=== PATIENT | female | born 1980 | race Caucasian/White ===

== ENCOUNTER 2019-11-23 15:29 | Outpatient (CLI) | payer BC, SELFPAY ==
[2019-11-23 15:42] LABS: Basophils Absolute Auto 0.06 K/mm3 (0.00-0.10); Basophils Percent Auto 0.6 % (0.0-1.0); Eosinophils Absolute Auto 0.13 K/mm3 (0.02-0.50); Eosinophils Percent Auto 1.4 % (1.0-6.0); Hematocrit 41.1 % (35.0-49.0); Hemoglobin 13.8 g/dL (12.0-15.0); Immature Granulocyte Absolute 0.02 K/mm3 (0.00-0.00); Immature Granulocyte Percent A 0.2 % (0.0-0.0); Lymphocytes Absolute Auto 2.99 K/mm3 (1.10-4.50); Lymphocytes Percent Auto 32.2 % (18.0-42.0); Mean Corpuscular HGB Conc 33.6 g/dL (32.0-36.0); Mean Corpuscular Hemoglobin 31.2 pg (27.0-31.0); Mean Platelet Volume 9.9 fl (9.2-11.8); Monocytes Absolute Auto 0.39 K/mm3 (0.10-0.90); Monocytes Percent Auto 4.2 % (2.0-11.0); Neutrophils Absolute Auto 5.7 K/mm3 (1.7-7.2); Neutrophils Percent Auto 61.4 % (50.0-70.0); Platelet Count Result 323 K/mm3 (150-420); Red Blood Count 4.42 M/mm3 (4.20-5.40); Red Cell Distribution Width 11.9 % (11.6-14.4); White Blood Count 9.3 K/mm3 (4.8-10.8)
[2019-11-23 15:44] LABS: Appearance Urine Clear (Clear); Bilirubin Urine Negative (Negative); Color Urine Yellow (Yellow); Glucose Urine UA Negative (Negative); Ketones Urine Negative (Negative); Leukocyte Esterase Ur Negative LEU/UL (Negative); Nitrate Urine Negative (Negative); Protein Urine Negative (Negative); Urobilinogen Urine 0.2 mg/dL (0.2-1.0)
[2019-11-23 15:49] LABS: Pregnancy On Board Control Positive; Urine Pregnancy Test Negative
[2019-11-23 15:54] LABS: Add Urine Microscopic? YES; Blood Urine Trace-Intact (Negative); RBC Urine 0-2 /hpf (0-2); Squamous Epithelial Cell Urine Rare /hpf (Few); WBC Urine None seen /hpf (0-3)
[2019-11-23 15:55] LABS: Amorphous Sediment Urine Few; Bacteria Urine Trace /hpf
[2019-11-23 16:11] LABS: Alanine Aminotransferase 23 U/L (14-59); Albumin Level 3.9 g/dL (3.4-5.0); Alkaline Phosphatase 53 U/L (46-116); Amylase 40 U/L (25-115); Anion Gap 11.7 mmol/L (7-16); Aspartate Amino Transferase 16 U/L (15-37); Bilirubin,Total 0.3 mg/dL (0.00-1.00); Blood Urea Nitrogen 10 mg/dL (7-18); Carbon Dioxide 29 mmol/L (21-32); Chloride 102 mmol/L (98-108); Estimated Glomerular Filt Rate > 60; Glucose 87 mg/dL (70-99); Osmolality Calculated 286 mOsm/kg (285-295); Potassium 3.7 mmol/L (3.5-5.1); Sodium 139 mmol/L (136-145); Total Protein 8.1 g/dL (6.4-8.2)
== END 2019-11-23 15:30 | disposition home or self-care (01) ==
LOC: CHSLAB 15:32
PROVIDERS: PCP Internal Medicine; Visit Provider Family Medicine
DX: R10.13 Epigastric pain (principal)
CPT/HCPCS: 36415; 80053; 81001; 81025; 82150; 85025

== ENCOUNTER 2019-11-25 07:40 | Outpatient (CLI) | payer BC, SELFPAY ==
--- NOTE | ~2019-11-25 | US_ITS ---
EXAMINATION: US abdomen complete DATE: 11/25/2019 08:09 INDICATION: Abdominal pain. TECHNIQUE: Multiple grayscale and Doppler ultrasound images of the abdomen were obtained. COMPARISON: None FINDINGS: The visualized portions of the head, body, and tail of the pancreas are normal. The liver i s normal without focal lesion. No liver surface nodularity. There is normal flow in main portal vein. The gallbladder is normal in size. No gallstones or gallbladder wall thickening. There was no sonogr aphic Harper sign. The common duct is normal and measures 3 mm. Abdominal aorta is normal in caliber. Inferior vena cava is normal. The kidneys are normal in size. The spleen is normal in size. IMPRESSION: 1. Normal complete abdomen ultrasound. Reviewed, dictated and finalized at location A.
== END 2019-11-25 07:41 | disposition home or self-care (01) ==
LOC: CHSIMG 07:42
PROVIDERS: PCP Family Medicine; Visit Provider Family Medicine
DX: R10.9 Unspecified abdominal pain (principal)
CPT/HCPCS: 76700

== ENCOUNTER 2020-07-06 11:29 | Outpatient (CLI) | payer BC, SELFPAY ==
--- NOTE | ~2020-07-06 | XR_ITS ---
EXAMINATION: XR chest 2V DATE: 07/06/2020 11:59 INDICATION: Hypertension. TECHNIQUE: Frontal and lateral views of the chest were obtained. COMPARISON: None. FINDINGS: The chest demonstrates clear lungs without pneumonia, pleural effusion, or pneumothorax. Th e heart size is normal. IMPRESSION: 1. No acute cardiopulmonary disease. Reviewed, dictated and finalized at location A. [employer]
== END 2020-07-06 11:30 | disposition home or self-care (01) ==
LOC: CHSIMG 11:31
PROVIDERS: PCP Internal Medicine; Visit Provider Internal Medicine
DX: Z00.00 Encounter for general adult medical examination without abnormal findings (principal); I10 Essential (primary) hypertension
CPT/HCPCS: 71046

== ENCOUNTER 2021-12-05 07:17 | Outpatient (CLI) | payer BC, SELFPAY ==
--- NOTE | ~2021-12-05 | MM_ITS ---
EXAMINATION: MM screening [facility] BI w [place] HISTORY: Screening TECHNIQUE: Craniocaudal and mediolateral oblique 3-D tomosynthesis images were obtained and synthetic 2-D images were generated. CAD analysis was submitted and interpreted. COMPARISON: Comparison to multiple prior studies sequentially, with oldest reviewed study dated 04/05. BREAST PARENCHYMAL COMPOSITION: There are scattered areas of fibroglandular density. FINDINGS: There is no evidence of suspicious mass, calcification, or architectural distortion to sugg est malignancy in either breast. There has been no suspicious interval change. IMPRESSION: 1. No mammographic evidence of malignancy. 2. Recommend routine screening mammography in one year. BI-RADS Category 1: Negative Reviewed, dictated and finalized at location A.
== END 2021-12-05 07:18 | disposition home or self-care (01) ==
LOC: CHSIMG 07:20
PROVIDERS: PCP Internal Medicine; Visit Provider Obstetrics & Gynecology
DX: Z12.31 Encounter for screening mammogram for malignant neoplasm of breast (principal)
CPT/HCPCS: 77063; 77067

== ENCOUNTER 2022-12-07 07:24 | Outpatient (CLI) | payer BC, SELFPAY ==
--- NOTE | ~2022-12-07 | MM_ITS ---
EXAMINATION: MM screening [facility] BI w [place] HISTORY: Screening mammogram TECHNIQUE: Craniocaudal and mediolateral oblique 3-D tomosynthesis images were obtained and synthetic 2-D images were generated. CAD analysis was submitted and interpreted. COMPARISON: 12/05/2021, 04/15/2019 bilateral screening mammogram examinations BREAST PARENCHYMAL COMPOSITION: There are scattered areas of fibroglandular density. FINDINGS: There is no evidence of suspicious mass, calcification, or architectural distortion to sugg est malignancy in either breast. There has been no suspicious interval change. IMPRESSION: 1. No mammographic evidence of malignancy. 2. Recommend routine screening mammography in one year. BI-RADS Category 1: Negative Reviewed, dictated and finalized at location A.
== END 2022-12-07 07:25 | disposition home or self-care (01) ==
LOC: CHSIMG 07:27
PROVIDERS: PCP Internal Medicine; Visit Provider Obstetrics & Gynecology
DX: Z12.31 Encounter for screening mammogram for malignant neoplasm of breast (principal)
CPT/HCPCS: 77063; 77067

== ENCOUNTER 2023-05-20 11:08 | Outpatient (CLI) | payer BC, SELFPAY ==
--- NOTE | ~2023-05-20 | XR_ITS ---
Right Knee Technique: AP, lateral, and sunrise views were obtained. Clinical History: Burning sensation Findings: No fracture or dislocation is seen. Osseous alignment is anatomic. Joint spaces are preserv ed without degenerative or erosive change. Soft tissues are unremarkable. No joint effusion is seen. Impression: Unremarkable right knee radiographs. Reviewed, dictated and finalized at [facility]. [employer] Impression: Unremarkable right knee radiographs.
--- NOTE | ~2023-05-20 | XR_ITS ---
Left Knee Technique: AP, lateral, and sunrise views were obtained. Clinical History: Burning sensation Findings: No fracture or dislocation is seen. Osseous alignment is anatomic. Joint spaces are preserv ed without degenerative or erosive change. Soft tissues are unremarkable. No joint effusion is seen. Impression: Unremarkable left knee radiographs. Reviewed, dictated and finalized at [facility]. [employer] Impression: Unremarkable left knee radiographs.
== END 2023-05-20 11:09 | disposition home or self-care (01) ==
LOC: CHSIMG 11:10
PROVIDERS: PCP Internal Medicine; Visit Provider Internal Medicine
DX: M25.562 Pain in left knee (principal); M25.561 Pain in right knee
CPT/HCPCS: 73562

== ENCOUNTER 2023-05-21 07:55 | Outpatient (CLI) | payer BC, SELFPAY ==
[2023-05-21 08:12] LABS: Basophils Absolute Auto 0.03 K/mm3 (0.00-0.10); Basophils Percent Auto 0.4 % (0.0-1.0); Eosinophils Absolute Auto 0.14 K/mm3 (0.02-0.50); Hematocrit 43.1 % (35.0-49.0); Hemoglobin 14.1 g/dL (12.0-15.0); Immature Granulocyte Absolute 0.01 K/mm3 (0.00-0.00); Immature Granulocyte Percent A 0.1 % (0.0-0.0); Lymphocytes Absolute Auto 2.68 K/mm3 (1.10-4.50); Lymphocytes Percent Auto 37.7 % (18.0-42.0); Mean Corpuscular HGB Conc 32.7 g/dL (32.0-36.0); Mean Corpuscular Hemoglobin 30.5 pg (27.0-31.0); Mean Corpuscular Volume 93.1 fL (78.0-102.0); Mean Platelet Volume 9.6 fl (9.2-11.8); Monocytes Absolute Auto 0.46 K/mm3 (0.10-0.90); Monocytes Percent Auto 6.5 % (2.0-11.0); Neutrophils Absolute Auto 3.8 K/mm3 (1.7-7.2); Neutrophils Percent Auto 53.3 % (50.0-70.0); Platelet Count Result 295 K/mm3 (150-420); Red Blood Count 4.63 M/mm3 (4.20-5.40); Red Cell Distribution Width 12.2 % (11.6-14.4); White Blood Count 7.1 K/mm3 (4.8-10.8)
[2023-05-21 09:12] LABS: Alanine Aminotransferase 110 U/L (14-59); Albumin Level 4.1 g/dL (3.4-5.0); Alkaline Phosphatase 72 U/L (46-116); Anion Gap 10 mmol/L (8-16); Aspartate Amino Transferase 40 U/L (15-37); Bilirubin,Total 0.3 mg/dL (0.00-1.00); Blood Urea Nitrogen 12 mg/dL (7-18); Calcium 8.5 mg/dL (8.5-10.1); Carbon Dioxide 26 mmol/L (21-32); Chloride 100 mmol/L (98-108); Cholesterol 218 mg/dL (0-200); Estimated Glomerular Filt Rate > 60; Glucose 100 mg/dL (70-99); HDL Direct 48 mg/dL (40-60); LDL Cholesterol Calculated 117 mg/dL (<130); Osmolality Calculated 281 mOsm/kg (285-295); Potassium 4.3 mmol/L (3.5-5.1); Sodium 136 mmol/L (136-145); Thyroid Stimulating Hormone 5.09 uIU/mL (0.36-3.74); Total Protein 7.7 g/dL (6.4-8.2); Triglycerides 263 mg/dL (0-150)
[2023-05-21 09:39] LABS: CRP < 0.5 mg/dL (0.0-0.9)
[2023-05-23 11:24] LABS: Hepatitis A Antibody IgM Nonreactive; Hepatitis B Core Antibody Nonreactive (Nonreactive); Hepatitis B Surface Antigen Nonreactive (Nonreactive); Hepatitis C Virus Antibody Nonreactive
== END 2023-05-21 07:56 | disposition home or self-care (01) ==
LOC: CHSLAB 07:57
PROVIDERS: PCP Internal Medicine; Visit Provider Internal Medicine
DX: Z00.00 Encounter for general adult medical examination without abnormal findings (principal); M25.562 Pain in left knee; M25.561 Pain in right knee; R94.5 Abnormal results of liver function studies
CPT/HCPCS: 36415; 80053; 80061; 80074; 84443; 85025; 86140

== ENCOUNTER 2023-05-29 07:21 | Outpatient (CLI) | payer BC, SELFPAY ==
--- NOTE | ~2023-05-29 | US_ITS ---
Limited Abdominal Sonogram: Real-time sonographic imaging of the right upper quadrant was performed. Clinical History: Abnormal LFTs Findings: The liver appears heterogeneous, with no evidence of mass lesion or bile duct dilatation. Main portal vein demonstrates normal direction of flow. The gallbladder is well distended, and appear s normal with no evidence of gallstone or wall thickening. The common bile duct measures 3 mm. The v isualized pancreas, aorta, and IVC are unremarkable. Impression: Suspected diffuse fatty infiltration of the liver versus other chronic liver disease. Reviewed, dictated and finalized at location M. [employer] Impression: Suspected diffuse fatty infiltration of the liver versus other chronic liver di sease.
== END 2023-05-29 07:22 | disposition home or self-care (01) ==
LOC: CHSIMG 07:23
PROVIDERS: PCP Internal Medicine; Visit Provider Internal Medicine
DX: R94.5 Abnormal results of liver function studies (principal)
CPT/HCPCS: 76705

== ENCOUNTER 2023-06-05 15:53 | Outpatient (CLI) | payer BC, SELFPAY ==
[2023-06-05 16:51] LABS: Uric Acid 4.2 mg/dL (2.6-6.0)
[2023-06-05 16:55] LABS: CRP < 0.5 mg/dL (0.0-0.9)
[2023-06-08 21:24] LABS: Anti Cyclic Citrullinated Pept <16 Units (<20)
== END 2023-06-05 15:54 | disposition home or self-care (01) ==
LOC: CHSLAB 15:55
PROVIDERS: PCP Internal Medicine; Visit Provider Internal Medicine
DX: M25.562 Pain in left knee (principal); M25.561 Pain in right knee
CPT/HCPCS: 36415; 84550; 86038; 86140; 86200

== ENCOUNTER 2023-08-26 01:12 | Day surgery (SDC) | payer BC, SELFPAY ==
[2023-08-14 10:41] VITALS: BMI 32.1
[2023-08-26 06:24] VITALS: BP 131/78; PULSE 84; RESP 16; TEMP 36.1; O2SAT 100
[2023-08-26] MEDS: LACTATED RINGERS 1,000 ML 150 ML IV CONT (06:37)
--- NOTE | 2023-08-26 07:27 | WPDANESEPPF ---
Anes - Initial Pre Proc Eval Procedure: Operation Date: 08/26/23 07:30 Proposed Procedures p Screening Colonoscopy - Abelino Silva MD Date/Time: 08/26/23 07:27 Surgeon: Abelino Silva MD Pre Op Diagnosis: family hx colon ca Patient Data Age: 42 Gender: F Height: 1.63 m Weight: 84.8 kg Last Vital Signs Temp 97.0 F L 08/26/23 06:24 Pulse 84 08/26/23 06:24 Resp 16 08/26/23 06:24 BP 131/78 08/26/23 06:24 Pulse Ox 100 08/26/23 06:24 O2 Del Method Room Air 08/26/23 06:24 Allergies Allergy/AdvReac Type Severity Reaction Status Date / Time No Known Allergies Allergy Unknown Verified 08/26/23 06:22 Home Medications Medication Instructions Recorded Confirmed Type verapamil 120 mg tablet,extended 120 mg PO DAILY 08/14/23 08/26/23 History release Patient hx anesthesia problems: none Family hx anesthesia problems: none Results Review: All pre-operative results and documents have been reviewed as part of the pre-operative evaluation. [facility] Past Medical History Medical History (Updated 08/26/23 @ 07:28 by Abelino Silva MD) Family history of colon cancer in mother Social History Social History Smoking packs per day: 0.5 Smoking cigarettes per day: 10.0 Years smoked: 6 Smoking pack-years: 3.00 Smoking status: Former smoker Tobacco type: cigarettes Alcohol intake: current Alcohol use details: 2 per month Living arrangements: with family Spiritual care concerns: No Anes - Eval Final PreProcedure Day of Procedure 08/26/23 07:27 Patient weight: normal Heart: regular rate and rhythm Lungs: clear to auscultation Airway: Mallampati scale class II Neurological: alert and oriented Last oral intake: >/= 8 hours ASA classification: III Emergent: no Anesthetic plan: proceed Anesthesia type and monitoring: general GIVS and standard monitoring Results Review: All pre-operative results and documents have been reviewed as part of the pre-operative evaluation. Informed Consent: The patient's anesthetic plan and its attendant risks and benefits were discussed with the patient/family/POA. Questions were solicited and answers provided to the satisfaction of the patient/family/POA.
--- NOTE | 2023-08-26 07:27 | PM.HPGS ---
History of Present Illness History of Present Illness Consent: Risks, benefits, and alternatives have been discussed and questions answered. Patient agrees to proceed with procedure. Chief complaint: family hx colon ca Narrative: Sonia Chapman is a 42 year old female here for first colonoscopy, mother had colon cancer Review of Systems Review of Systems: All systems reviewed & are unremarkable except as noted in HPI and below PMFSH Past Medical History Medical History (Updated 08/26/23 @ 07:28 by Abelino Silva MD) Family history of colon cancer in mother Social History Social History Smoking packs per day: 0.5 Smoking cigarettes per day: 10.0 Years smoked: 6 Smoking pack-years: 3.00 Smoking status: Former smoker Tobacco type: cigarettes Alcohol intake: current Alcohol use details: 2 per month Living arrangements: with family Spiritual care concerns: No Meds Home Medications and Allergies Home Medications Medication Instructions Recorded Confirmed Type verapamil 120 mg tablet,extended 120 mg PO DAILY 08/14/23 08/26/23 History release Allergies Allergy/AdvReac Type Severity Reaction Status Date / Time No Known Allergies Allergy Unknown Verified 08/26/23 06:22 Vital Signs Vital Signs - 24 hr 08/26/23 06:24 Temperature 97.0 F L Pulse Rate 84 Respiratory Rate 16 Blood Pressure 131/78 Pulse Oximetry 100 Oxygen Delivery Room Air Exam Const: General: comfortable and no acute distress HENMT: Face/Nose/Sinus: Normal nares present Eyes: General: appearance normal, both eyes and all related structures Neck: Neck: no JVD Resp: Auscultation: clear to auscultation bilaterally Cardio: Rate: regular rate Rhythm: regular rhythm GI: Inspection: non-distended GI Palp: Yes Soft to palpation Skin: General skin exam: normal color Neuro: General: gait normal Speech: normal speech Extrem: General: normal to inspection Psych: Mental Status: mental status grossly normal Assessment and Plan Assessment and plan (1) Family history of colon cancer in mother: Code(s): Z80.0 - Family history of malignant neoplasm of digestive organs Status: Acute Assessment and Plan: colonoscopy
[2023-08-26 07:49] VITALS: BP 85/51; PULSE 66; RESP 22; O2SAT 96
[2023-08-26 07:59] VITALS: BP 87/55; PULSE 59; RESP 17; O2SAT 100
[2023-08-26 08:09] VITALS: BP 115/73; PULSE 62; RESP 17; O2SAT 100
== END 2023-08-26 08:17 | disposition home or self-care (01) ==
PROVIDERS: PCP Internal Medicine; Visit Provider Internal Medicine Gastroenterology
PROC: 0DJD8ZZ Inspection of Lower Intestinal Tract, Via Natural or Artificial Opening Endoscopic (ICD-10-PCS; CPT 45378; principal; 2023-08-26 07:30)
DX: Z12.11 Encounter for screening for malignant neoplasm of colon (principal); K64.8 Other hemorrhoids; Z87.891 Personal history of nicotine dependence; Z80.0 Family history of malignant neoplasm of digestive organs
CPT/HCPCS: 45378; J2704; J7120

== ENCOUNTER 2023-09-17 15:00 | Outpatient (RCR) | payer BC, SELFPAY ==
[2023-07-02 14:33] VITALS: BMI 32.1
[2023-07-02 15:31] VITALS: BMI 32.1
[2023-09-17 14:49] VITALS: BMI 31.3
[2023-09-17 14:57] VITALS: BMI 31.3
== END 2023-09-30 23:59 | disposition home or self-care (01) ==
LOC: ANHDMC 15:00
PROVIDERS: PCP Internal Medicine; Visit Provider Internal Medicine
DX: E78.2 Mixed hyperlipidemia (principal); Z71.3 Dietary counseling and surveillance
CPT/HCPCS: 97802; 97803

== ENCOUNTER 2023-12-24 07:24 | Outpatient (CLI) | payer BC, SELFPAY ==
--- NOTE | ~2023-12-24 | MM_ITS ---
EXAMINATION: MM screening [facility] BI w [place] HISTORY: Screening TECHNIQUE: Craniocaudal and mediolateral oblique 3-D tomosynthesis images were obtained and synthetic 2-D images were generated. CAD analysis was submitted and interpreted. COMPARISON: Comparison to multiple prior studies sequentially, with oldest reviewed study dated 04/05. BREAST PARENCHYMAL COMPOSITION: Not dense: There are scattered areas of fibroglandular density. FINDINGS: There is a developing focal asymmetry in the upper outer quadrant of the left breast [place] man iorly. The right breast is stable without evidence for malignancy. IMPRESSION: 1. Developing right breast asymmetry. 2. Additional mammographic views and possible breast ultrasound are recommended. BI-RADS Category 0: Incomplete: Needs additional imaging evaluation. Reviewed, dictated and finalized at location B. IMPRESSION: 1. Developing right breast asymmetry. 2. Additional mammographic views and possible breast ultrasound are recommended . BI-RADS Category 0: Incomplete: Needs additional imaging evaluation.
== END 2023-12-24 07:25 | disposition home or self-care (01) ==
LOC: CHSIMG 07:24
PROVIDERS: PCP Internal Medicine; Visit Provider Obstetrics & Gynecology
DX: Z12.31 Encounter for screening mammogram for malignant neoplasm of breast (principal); R92.8 Other abnormal and inconclusive findings on diagnostic imaging of breast
CPT/HCPCS: 77063; 77067

== ENCOUNTER 2023-12-27 09:33 | Outpatient (CLI) | payer BC, SELFPAY ==
--- NOTE | ~2023-12-27 | MMUS_ITS ---
EXAMINATION: MM diagnostic mac LT w [place], US breast LT limited HISTORY: Follow-up left breast asymmetry TECHNIQUE: Additional 3-D tomosynthesis images of the left breast were performed and synthetic 2-D im ages were generated. CAD analysis was submitted and interpreted. High resolution Limited left breast ultrasound was performed. COMPARISON: Comparison to multiple prior studies sequentially, with oldest reviewed study dated 04/05. BREAST PARENCHYMAL COMPOSITION: Not dense: There are scattered areas of fibroglandular density. FINDINGS: MAMMOGRAPHIC FINDINGS: Left breast asymmetry is less apparent with spot compression and mediolateral views. There are no bharath picious masses, calcifications or architectural distortion. ULTRASOUND: Limited left breast ultrasound: Normal heterogeneous echotexture without focal solid or cystic mass. IMPRESSION: 1. No evidence for malignancy in the left breast. 2. Routine yearly screening mammogram and regular clinical breast examination are recommended. BI-RADS Category 1: Negative Reviewed, dictated and finalized at location B. IMPRESSION: 1. No evidence for malignancy in the left breast. 2. Routine yearly screening mammogram and regular clinical breast examination a re recommended. BI-RADS Category 1: Negative
== END 2023-12-27 09:34 | disposition home or self-care (01) ==
LOC: CHSIMG 09:35
PROVIDERS: PCP Internal Medicine; Visit Provider Obstetrics & Gynecology
DX: R92.8 Other abnormal and inconclusive findings on diagnostic imaging of breast (principal)
CPT/HCPCS: 76642; 77061; 77065; G0279

== ENCOUNTER 2024-03-19 15:00 | Outpatient (RCR) | payer BC, SELFPAY ==
[2023-12-24 15:45] VITALS: BMI 31.4
[2023-12-24 15:46] VITALS: BMI 31.4
[2024-03-19 14:53] VITALS: BMI 30.7
== END 2024-03-23 10:45 | disposition home or self-care (01) ==
LOC: ANHDMC 15:00
PROVIDERS: PCP Internal Medicine; Visit Provider Internal Medicine
DX: E78.2 Mixed hyperlipidemia (principal); Z71.3 Dietary counseling and surveillance
CPT/HCPCS: 97802; 97803

== ENCOUNTER 2024-08-18 14:30 | Outpatient (RCR) | payer BC, SELFPAY ==
[2024-05-21 14:29] VITALS: BMI 30.7
[2024-08-18 14:21] VITALS: BMI 30.9
[2024-08-18 14:26] VITALS: BMI 30.9
== END 2024-08-19 23:59 | disposition home or self-care (01) ==
LOC: ANHDMC 14:30
PROVIDERS: PCP Internal Medicine; Visit Provider Internal Medicine
DX: E78.2 Mixed hyperlipidemia (principal); Z71.3 Dietary counseling and surveillance
CPT/HCPCS: 97802; 97803

== ENCOUNTER 2024-10-01 09:37 | Outpatient (CLI) | payer BC, SELFPAY ==
--- NOTE | ~2024-10-01 | US_ITS ---
Limited Abdominal Sonogram: Real-time sonographic imaging of the right upper quadrant was performed. Clinical History: Abnormal LFTs Findings: The liver appears normal with no evidence of mass lesion or bile duct dilatation. Main por ly vein demonstrates normal direction of flow. The gallbladder is well distended, and appears normal with no evidence of gallstone or wall thickening. The common bile duct measures 3 mm. The visualize d pancreas, aorta, and IVC are unremarkable. Impression: No significant abnormality seen. Reviewed, dictated and finalized at location . Impression: No significant abnormality seen.
== END 2024-10-01 09:38 | disposition home or self-care (01) ==
DX: K76.0 Fatty (change of) liver, not elsewhere classified (principal)
CPT/HCPCS: 76705

== ENCOUNTER 2024-10-06 07:48 | Outpatient (CLI) | payer BC, SELFPAY ==
--- NOTE | ~2024-10-06 | NM_ITS ---
EXAMINATION: NM hepatobiliary w pharm DATE: 10/06/2024 10:02 CDT INDICATION: Right upper quadrant pain COMPARISON: Ultrasound dated 10/01/2024 TECHNIQUE: 4.9 mCi Tc-99m mebrofenin (Choletec) was administered intravenously. Scintigraphic images of the abdomen were obtained for one hour. At the 1 hour time point, 1.7 mcg sincalide (Kinevac) was administered by slow intravenous infusion, and imaging was continued for 30 minutes. Gallbladder eje ction fraction was calculated by the technologist.] FINDINGS: There is normal clearance of radiotracer from the blood pool. There is homogeneous tracer u ptake by the liver. Activity progresses to the gallbladder and bowel. Gallbladder ejection fraction is 67% (normal 10-90%, but most patient with gallbladder dysfunction have GBEF < 35%).] IMPRESSION: 1. Normal hepatobiliary scan. Reviewed, dictated and finalized at location A.
--- OUTSIDE RECORDS SUMMARY | 2024-10-06 07:52 | XMS_ITS | Referral Summary ---
Author Organization [facility] Address [address] [place] [address] Care Team Providers Care Records Custodian Name Role Phone Chalo Hernandez MD Primary Care Provider [phone] Encounters Date Type Department Care Team Description 09/14/2024 Results Follow-Up [facility] [address] [place] [address] Medical Office [address] [place] [address] Lexie Samuels NP Liver Elastography w/o Imaging W/I&R -[facility], Hepatic function panel, CBC with auto differential, Additional followed-up results: 3 09/14/2024 4:20 PM CDT Lab [facility] [address] [place] [address] Metabolic dysfunction-associate d steatotic liver disease (MASLD) 09/14/2024 11:30 AM CDT Procedure visit [facility] [address] [place] [address] Medical Office [address] [place] [address] Metabolic dysfunction-associate d steatotic liver disease (MASLD) 09/14/2024 3:40 PM CDT Office Visit [facility] [address] [place] [address] Medical Office [address] [place] [address] Lexie Samuels NP Metabolic dysfunction-associate d steatotic liver disease (MASLD) (Primary Dx); Right upper quadrant pain 08/25/2024 Results Follow-Up [facility] [address] [facility] Medical Office Building [address] [place] [address] Lexie Samuels NP Hepatic function panel from Last 3 Months Allergies No known active allergies Medications verapamil SR (CALAN SR) 120 mg CR tablet 08/28/2023 Active Active Problems Problem Noted Date Diagnosed Date Right upper quadrant pain 09/14/2024 Assessment & Plan (09/14/2024 5:01 PM CDT): I have ordered NM HIDA scan to rule out biliary dyskinesia. I have offered GI referral. Patient would like to see what results show. Metabolic dysfunction-associ ated steatotic liver disease (MASLD) 09/14/2024 Assessment & Plan (09/14/2024 5:01 PM CDT): Mrs. Chapman presents for follow up for MASLD. She has history of elevated liver tests. Most recent lab work 08/21/2024 which shows AST 53, ALT 76. Fibroscan 09/09/2023 suggest of normal-moderate steatosis and low risk fibrosis. I will update lab work today and Fibroscan. Encouraged healthy lifestyle, weight loss, diet and exercise. We have discussed the natural history of Metabolic dysfunction-associated steatosis liver disease (MASLD) fomerly known as NAFLD. The the risks of progression to cirrhosis, association with hepatocellular carcinoma and potential future need for liver transplantation. We have discussed that in patients with metabolic associated liver disease the main mortality risks are primarily due to cardiovascular diseases, non-hepatic malignancies or cancers and only thirdly, from complications of liver disease. We recommend weight loss through diet and exercise. We recommend weight loss of 10% of current body weight over a period of a year. Lifestyle modification consisting of diet, exercise, and weight loss is necessary to treat patients with MASLD. The data shows that overall weight loss is the moraatya to improvement in the histopathological features of MASH. A combination of a low calorie diet (daily reduction by 500-1,000 kcal) and moderate-intensity exercise provides the best chances of achieving and maintaining weight loss over time. Weight loss of at least 3%-5% of body weight appears necessary to improve steatosis, but a greater weight loss (7%-10%) is needed to improve the majority of the histopathological features of MASH, including fibrosis. Follow up in 1 year. Elevated liver function tests 09/09/2023 Assessment & Plan (09/09/2023 10:35 AM CDT): Mrs. Chapman presents for evaluation of elevated liver tests and imaging findings if hepatic steatosis. Most recent lab work 05/21/2023 reveals Alk Phos 72, AST 40, ALT 110, T bili 0.3, Plt 295K. Right upper quadrant ultrasound for abdnomal liver function tests showed suspected diffuse fatty infiltration. Patient drinks 1-2 times per month, 1-2 mixed drinks maximum per instance. Workup shows negative for acute viral hepatitis. Patient has successfully lost 10 lbs through diet and exercise, since June 2023. I have suspicion this is metabolic associated steatotic liver dysfunction (MASLD) with patient's metabolic conditions of hypertension, hyperlipidemia, Obesity BMI 31. I will obtain lab work today to rule out other etiologies of elevated liver tests including autoimmune, genetic, iron overload and celiac. I will obtain Fibroscan toay to evaluate degree of hepatic steatosis and if fibrosis. I have given patient a weight loss goal of 10% of her body weight (~18 lbs) over the course of 1 year. Patient is motivated. I have recommended avoid supplements, herbals, can take up to 2,000 mg per day of Tylenol as needed. We have discussed the natural history of Metabolic dysfunction-associated steatosis liver disease (MASLD) fomerly known as NAFLD. The the risks of progression to cirrhosis, association with hepatocellular carcinoma and potential future need for liver transplantation. We have discussed that in patients with metabolic associated liver disease the main mortality risks are primarily due to cardiovascular diseases, non-hepatic malignancies or cancers and only thirdly, from complications of liver disease. We recommend weight loss through diet and exercise. We recommend weight loss of 10% of current body weight over a period of a year. Lifestyle modification consisting of diet, exercise, and weight loss is necessary to treat patients with MASLD. The data shows that overall weight loss is the morataya to improvement in the histopathological features of MASH. A combination of a low calorie diet (daily reduction by 500-1,000 kcal) and moderate-intensity exercise provides the best chances of achieving and maintaining weight loss over time. Weight loss of at least 3%-5% of body weight appears necessary to improve steatosis, but a greater weight loss (7%-10%) is needed to improve the majority of the histopathological features of MASH, including fibrosis. Follow up in 1 month. Immunizations Immunization Administration Dates Next Due DTP 12/29/1985, 6,05/06/1981,04/05,01/04/1981 Influenza, Quadrivalent, Spl it, Preservative Free, Intramuscular 02/20/2018,03/06/2016 MMR 01/09/1991,04/05/1986 Moderna SARS-CoV-2 Monovalen t Vaccination (12+ YRS) 08/05/2020,07/08/2020 OPV 08/04/1985, 6,05/06/1981,04/05,01/04/1981 Td, adsorbed 11/09/1994 Tdap 10/11/2018 Social History Tobacco Use Types Packs/Day Years Used Date Smoking Tobacco: Former Cigarettes Q uit: 2014 Smokeless Tobacco: Never Tobacco Cessation:Counseling Given: Not Answered Alcohol Use Standard Drinks/Week Comments Yes 0 (1 standard drink = 0.6 oz pur e alcohol) socially AUDIT-C Answer Date Recorded Q1: How often do you have a drink containing alc ohol? Monthly or less 09/14/2024 Q2: How many drinks containi ng alcohol do you have on a typical day when you are drinking? 1 or 2 09/14/2024 Q3: How often do you have si x or more drinks on one occasion? Never 09/14/2024 Comments Unknown Sex and Gender Information Value Date Recorded Sex Assigned at Not on file Legal Sex Female 4:09 PM [employer] Gender Identity Not on file Sexual Orientation Not on file Last Filed Vital Signs Vital Sign Reading Time Taken Comments Blood Pressure 130/77 09/14/2024 3:38 PM CDT Pulse 66 09/14/2024 3:38 PM CDT Temperature - - Respiratory Rate - - Oxygen Saturation 100% 09/14/2024 3:38 PM CDT Inhaled Oxygen Concentration - - Weight 86 kg (189 lb 9.6 oz) 09/14/2024 3:38 PM CDT Height 165.1 cm (5' 5) 09/14/2024 3:38 PM CDT Body Mass Index 31.55 09/14/2024 3:38 PM CDT Plan of Treatment Not on file Procedures Procedure Name Priority Date/Time Associated Diagnosis Comments DIFFERENTIAL AUTO Routine 09/14/2024 4:2 9 PM CDT Metabolic dysfunction-associa carly steatotic liver disease (MASLD) TSH Routine 09/14/2024 4:29 PM CDT Metabolic dysfunction-associa carly steatotic liver disease (MASLD) HEMOGLOBIN A1C Routine 09/14/2024 4:29 PM CDT Metabolic dysfunction-associa carly steatotic liver disease (MASLD) CBC WITH AUTO DIFFERENTIAL Routine 09/14/2024 4:29 PM CDT Metabolic dysfunction-associa carly steatotic liver disease (MASLD) HEPATIC FUNCTION PANEL Routine 09/14/2024 4:29 PM CDT Metabolic dysfunction-associa carly steatotic liver disease (MASLD) LIVER ELASTOGRAPHY W/O IMAGING W/I&R Routine 09/14/2024 4:11 PM CDT Metabolic dysfunction-associa carly steatotic liver disease (MASLD) HEPATIC FUNCTION PANEL Routine 08/20/2024 9:58 AM CDT Metabolic dysfunction-associa carly steatotic liver disease (MASLD) HEPATITIS C ANTIBODY Routine 09/09/2023 11:29 AM CDT Elevated liver function tests from Last 3 Months or Most Recently Relevant to Health Maintenance Results * Differential, auto (09/14/2024 4:29 PM CDT) Neutrophil abs 3.73 1.50 - 6.50 K/cumm Imm gran abs 0.02 0.00 - 0.10 K/cumm [facility] Lymphocyte abs 2.34 0.80 - 3.30 K/cumm [facility] Monocyte abs 0.45 0.20 - 0.80 K/cumm [facility] Eosinophil abs 0.14 0.00 - 0.50 K/cumm [facility] Basophil abs 0.04 0.00 - 0.10 K/cumm [facility] Neutrophil pct 55.5 % [facility] Comment: Interpretive Data Percent cell count reference ranges are not reported, since discordance with absolute values may lead to misinterpretation of CBC data. Current Interpretive Data was last revised on 2017. Imm gran pct 0.3 % [facility] Comment: Interpretive Data Percent cell count reference ranges are not reported, since discordance with absolute values may lead to misinterpretation of CBC data. Current Interpretive Data was last revised on 2017. Lymphocyte pct 34.8 % [facility] Comment: Interpretive Data Percent cell count reference ranges are not reported, since discordance with absolute values may lead to misinterpretation of CBC data. Current Interpretive Data was last revised on 2017. Monocyte pct 6.7 % [facility] Comment: Interpretive Data Percent cell count reference ranges are not reported, since discordance with absolute values may lead to misinterpretation of CBC data. Current Interpretive Data was last revised on 2017. Eosinophil pct 2.1 % [facility] Comment: Interpretive Data Percent cell count reference ranges are not reported, since discordance with absolute values may lead to misinterpretation of CBC data. Current Interpretive Data was last revised on 2017. Basophil pct 0.6 % [facility] Comment: Interpretive Data Percent cell count reference ranges are not reported, since discordance with absolute values may lead to misinterpretation of CBC data. Current Interpretive Data was last revised on 2017. Blood 09/14/2024 4:29 PM CDT 09/14/2024 5:03 PM CDT us Lexie Samuels NP LAB BLOOD ORDERABLES Final Result [facility] [address] [facility]. [place] [address] * CBC with auto differential (09/14/2024 4:29 PM CDT) [facility] WBC 6.72 3.80 - 9.90 K/cumm Hgb 12.6 11.9 - 15.5 g/dL [facility] Hct 37.9 35.6 - 45.5 % [facility] Plt 259 150 - 400 K/cumm [facility] MPV 10.3 9.1 - 12.3 fL [facility] RBC 4.00 3.90 - 5.20 M/cumm [facility] MCV 94.8 81.3 - 96.4 fL [facility] MCH 31.5 27.1 - 33.3 pg [facility] MCHC 33.2 32.3 - 35.7 g/dL [facility] RDW CV 12.5 11.1 - 14.9 % [facility] RDW SD 43.1 35.7 - 48.1 fL [facility] NRBC abs 0.00 0.00 - 0.01 K/cumm [facility] Blood 09/14/2024 4:29 PM CDT 09/14/2024 5:03 PM CDT Lexie Samuels NP LAB BLOOD ORDERABLES Final Result Performing Organization Address [facility] Co de Phone Number [facility] [phone] [facility] [place], [place] [phone] * TSH (09/14/2024 4:29 PM CDT) [facility] Thyroid Stimulating Hormone 3.48 0.30 - 4.20 mcIUnit/mL Blood 09/14/2024 4:29 PM CDT 09/14/2024 5:03 PM CDT Lexie Samuels NP LAB BLOOD ORDERABLES Final Result Performing Organization Address [facility] Co de Phone Number [facility] [address] [facility] [email or web address] [address] * Hemoglobin A1c (09/14/2024 4:29 PM CDT) Hgb A1C 5.2 4.0 - 5.6 % Estimated Average Glucose 103 mg/dL [facility] Comment: The ADA recommends reporting an estimated Average Glucose (eAG) with all Hemoglobin A1c results using the equation derived from a study of 507 normal and diabetic adults. Minority populations were underrepresented and children were not included. (Diabetes Care 31:8930-9111, 2008). The eAG is not equivalent to a fasting glucose. Blood 09/14/2024 4:29 PM CDT 09/14/2024 5:03 PM CDT Lexie Samuels NP LAB BLOOD ORDERABLES Final Result Performing Organization Address [facility] Co de Phone Number [facility] [id number] [facility] [place], [place] [phone] * Hepatic function panel (09/14/2024 4:29 PM CDT) Pathologist [facility] Bilirubin, total 0.2 0.1 - 1.2 mg/dL Bilirubin, direct <0.2 0.1 - 0.3 mg/dL [facility] Protein, pl 7.4 6.5 - 8.5 g/dL [facility] Albumin 4.3 3.5 - 5.0 g/dL [facility] Alk phos 60 40 - 130 Units/L [facility] ALT 42 7 - 45 Units/L [facility] AST 31 10 - 45 Units/L [facility] Comment:Hemolyzed; result ma y be falsely elevated. Blood 09/14/2024 4:29 PM CDT 09/14/2024 5:03 PM CDT Lexie Samuels NP LAB BLOOD ORDERABLES Final Result Performing Organization Address [facility] Co de Phone Number [facility] [phone] [address] [facility] [place], [place] [phone] * Liver Elastography w/o Imaging W/I&R -[facility] (09/14/2024 4:11 PM CDT) Anatomical Region Laterality Modality Other Lexie Samuels NP GI PROCEDURE ORDERABLES Fi nal Result * (ABNORMAL) Hepatic function panel (08/20/2024 9:58 AM CDT) [facility] Protein, Total 7.2 6.4 - 8.4 g/dL [facility] Albumin 4.2 3.6 - 5.1 g/dL [facility] Globulin 3.0 2.2 - 4.0 g/dL (calc) [facility] Alb/glob ratio 1.4 0.9 - 2.3 (calc) [facility] Bilirubin, total 0.3 0.2 - 1.2 mg/dL [facility] Comment: Verified by repeat analysis. Bilirubin, direct 0.0 < OR = 0.2 mg/dL [facility] Bilirubin, indirect 0.3 0.2 - 1.2 mg/dL (calc) [facility] Alk phos 58 31 - 125 U/L [facility] AST 53(H) 10 - 30 U/L [facility] ALT (SGPT) 76(H) 6 - 29 U/L [facility] Blood 08/20/2024 9:58 AM CDT 08/20/2024 9:59 AM CDT Lexie Samuels NP LAB BLOOD ORDERABLES Final Result [facility] [address] [place] [address] * Hepatitis C antibody Blood (09/09/2023 11:29 AM CDT) [facility] Hep C Ab Nonreactive Nonreactive Comment: Interpretive Data Nonreactive: Antibodies to HCV not detected. Does NOT exclude the possibility of recent exposure to HCV. Equivocal: Equivocal for HCV antibodies. Supplemental molecular testing will be automatically performed to determine infection status in accordance with current CDC screening recommendations. Reactive: Positive for HCV antibodies. This may represent current or past HCV infection. Supplemental molecular testing will be automatically performed to determine current infection status in accordance with current CDC screening recommendations. Interpretive data was last revised on 2019. Testing performed by: [facility], [facility] [facility], [place]., [address] Blood 09/09/2023 11:2 9 AM CDT 09/09/2023 12:39 PM CDT us Lexie Samuels NP LAB MICROBIOLOGY - GENERAL ORDERABLES Edited Result - Final [facility] [address] [facility]. [place] [address] from Last 3 Months or Most Recently Relevant to Health Maintenance Insurance [facility] [employer] [facility] [employer] Care Teams Records Custodian Relationship Specialty Start Date End Date Chalo Hernandez MD PCP - General Internal Medicine 03/18/18
--- OUTSIDE RECORDS SUMMARY | 2024-10-06 07:52 | XMS_ITS | Clinical Summary ---
Author Organization [facility] Address [address] [place] [address] Care Team Providers Care Co Founder And Ceo Name Role Phone Chalo Hernandez MD Primary Care Provider [phone] Allergies No known active allergies Medications verapamil [...] including fibrosis. Follow up in 1 month. Encounters Date Type Department Care Team Description 09/14/2024 4:20 PM CDT Lab [facility] [address] [place], [place] [id number] Metabolic dysfunction-associate d steatotic liver disease (MASLD) 09/14/2024 3:40 PM CDT Office Visit [facility] Gastroenterology [address] [place] [address] [address] [place] [address] Lexie Samuels NP Metabolic dysfunction-associate d steatotic liver disease (MASLD) (Primary Dx); Right upper quadrant pain 09/14/2024 11:30 AM CDT Procedure visit [facility] G[facility]enter[facility] [address] [place] [address] Medical Office [address] [place] [address] Metabolic dysfunction-associate d steatotic liver disease (MASLD) 09/14/2024 Results Follow-Up [facility]enter[facility] [address] [place] [address] [address] [place] [address] Lexie Samuels NP Liver Elastography w/o Imaging [facility], Hepatic function panel, CBC with auto differential, Additional followed-up results: 3 08/25/2024 Results Follow-Up [facility]enter[facility] [address] [facility] Medical Office Building [address] [place] [address] Lexie Samuels, JOVANNY Hepatic function panel from Last 3 Months Immunizations Immunization Administration Dates Next Due DTP 12/29/1985, 6,05/06/1981,04/05,01/04/1981 Influenza, Quadrivalent, Spl it, Preservative Free, Intramuscular 02/20/2018,03/06/2016 MMR 01/09/1991,04/05/1986 Moderna SARS-CoV-2 Monovalen t Vaccination (12+ YRS) 08/05/2020,07/08/2020 OPV 08/04/1985, 6,05/06/1981,04/05,01/04/1981 Td, adsorbed 11/09/1994 Tdap 10/11/2018 Medical History Medical History Date Comments Hypercholesteremia Hypertension Family History Medical History Relation Name Comments Arthritis Father Heart disease Father Hypertension Father Cancer Mother Clotting disorder Mother Diabetes Mother Diabetes Sister Relation Name Status Comments Father Mother Sister Social History Tobacco Use Types Packs/Day Years [...] on file 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 Gender Identity Not on file Sexual Orientation Not on file Obstetrics History Last Filed Vital Signs Vital Sign Reading [...] 09/14/2024 3:38 PM CDT Plan of Treatment Health Maintenance Due Date Last Done Comments Breast Cancer Screening-Mammogram 1980 Cervical Cancer Screening 1980 Depression Screening 1980 Varicella Vaccines (1 of 2 - 13+ 2-dose series) 1993 Regular Well Visit/Exam 18-64 1998 Pneumococcal vaccine <65 (1 of 2 - PCV) 12/03/1999 Covid-19 Vaccine ( season) 2024 08/05/2020, 07/08/2020 Influenza Vaccine (Season Ended) 2025 02/20/2018, 03/06/2016 DTaP/Tdap/Td Vaccine (5 - Td or Tdap) 10/11/2028 10/11/2018, 11/09/1994, 12/29/1985, Additional history exists Hepatitis B Screening Completed 09/09/2023 Hepatitis C Screening Completed 09/09/2023 HPV Vaccines Aged Out No longer eligi ble based on patient's age to complete this topic Procedures Procedure Name Priority Date/Time Associated Diagnosis [...] Eosinophil abs 0.14 0.00 - 0.50 K/cumm [facility] Basophil abs 0.04 0.00 - 0.10 K/cumm [facility] Neutrophil pct 55.5 % [facility] Comment: Interpretive Data Percent cell count reference ranges are not reported, since discordance with absolute values may lead to misinterpretation of CBC data. Current Interpretive Data was last revised on 2017. Imm gran pct 0.3 % [facility] Comment: Interpretive Data Percent cell count reference ranges are not reported, since discordance with absolute values may lead to misinterpretation of CBC data. Current Interpretive Data was last revised on 2017. Lymphocyte pct 34.8 % [facility] Comment: Interpretive Data Percent cell count reference ranges are not reported, since discordance with absolute values may lead to misinterpretation of CBC data. Current Interpretive Data was last revised on 2017. Monocyte pct 6.7 % [facility] Comment: Interpretive Data Percent cell count reference ranges are not reported, since discordance with absolute values may lead to misinterpretation of CBC data. Current Interpretive Data was last revised on 2017. Eosinophil pct 2.1 % [facility] Comment: Interpretive Data Percent cell count reference ranges are not reported, since discordance with absolute values may lead to misinterpretation of CBC data. Current Interpretive Data was last revised on 2017. Basophil pct 0.6 % [facility] Comment: Interpretive Data Percent cell count reference ranges are not reported, since discordance with absolute values may lead to misinterpretation of CBC data. Current Interpretive Data was last revised on 2017. Blood 09/14/2024 4:29 PM CDT 09/14/2024 5:03 PM CDT Lexie Samuels NP LAB BLOOD ORDERABLES Final Result [facility] [address] [facility]. Department [place] [address] * CBC with auto differential (09/14/2024 4:29 PM CDT) WBC 6.72 3.80 - 9.90 K/cumm Hgb 12.6 11.9 - 15.5 g/dL [facility] Hct 37.9 35.6 - 45.5 % [facility] Plt 259 150 - 400 K/cumm [facility] MPV 10.3 9.1 - 12.3 fL [facility] RBC 4.00 3.90 - 5.20 M/cumm [facility] MCV 94.8 81.3 - 96.4 fL [facility] MCH 31.5 27.1 - 33.3 pg [facility] MCHC 33.2 32.3 - 35.7 g/dL [facility] RDW CV 12.5 11.1 - 14.9 % [facility] RDW SD 43.1 35.7 - 48.1 fL [facility] NRBC abs 0.00 0.00 - 0.01 K/cumm [facility] Blood 09/14/2024 4:29 PM CDT 09/14/2024 5:03 PM CDT Lexie Samuels NP LAB BLOOD ORDERABLES Final Result Performing Organization Address [facility] de Phone Number [facility] [address] [facility]. [facility] [place] [address] * TSH (09/14/2024 4:29 PM CDT) Thyroid Stimulating Hormone 3.48 0.30 - 4.20 mcIUnit/mL Blood 09/14/2024 4:29 PM CDT 09/14/2024 5:03 PM CDT Lexie Samuels NP LAB BLOOD ORDERABLES Final Result Performing Organization Address [facility] Phone Number [facility] PAUL[facility] [address] [facility]. [facility] [place] [address] * Hemoglobin A1c (09/14/2024 4:29 PM CDT) Hgb A1C 5.2 4.0 - 5.6 % Estimated Average Glucose 103 mg/dL [facility] Comment: The ADA recommends reporting an estimated Average Glucose (eAG) with all Hemoglobin A1c results using the equation derived from a study of 507 normal and diabetic adults. Minority populations were underrepresented and children were not included. (Diabetes Care 31:7905-2189, 2008). The eAG is not equivalent to a fasting glucose. Blood 09/14/2024 4:29 PM CDT 09/14/2024 5:03 PM CDT Lexie Samuels NP LAB BLOOD ORDERABLES Final Result Performing Organization Address [facility] de Phone Number [facility] PAULCH [address] [facility] [place] [address] * Hepatic function panel (09/14/2024 4:29 PM CDT) Bilirubin, total 0.2 0.1 - 1.2 mg/dL [...] NP LAB BLOOD ORDERABLES Final Result [facility] [address] [facility]. [place] [address] * Liver Elastography w/o Imaging [facility] (09/14/2024 4:11 PM CDT) Anatomical Region Laterality Modality Other us Lexie Samuels NP GI PROCEDURE ORDERABLES Fi nal Result * (ABNORMAL) Hepatic function panel (08/20/2024 9:58 AM CDT) Protein, Total 7.2 6.4 - 8.4 g/dL [...] 9:58 AM CDT 08/20/2024 9:59 AM CDT us Lexie Samuels NP LAB BLOOD ORDERABLES Final Result [facility] [address] [place] [address] * Hepatitis C antibody Blood (09/09/2023 11:29 AM CDT) Hep C Ab Nonreactive Nonreactive Comment: Interpretive [...] last revised on 2019. Testing performed by: [facility], [address] [place] [address], [place]., [address] Blood 09/09/2023 11:2 9 AM CDT 09/09/2023 12:39 PM CDT us Lexie Samuels NP LAB MICROBIOLOGY - GENERAL ORDERABLES Edited Result - Final [facility] [address] [facility]. [place] [address] from Last 3 Months or Most Recently Relevant to Health Maintenance Insurance [facility] [employer] [facility] [employer] Care Teams Co Founder And Ceo Relationship Specialty Start Date End Date Chalo Hernandez MD PCP - General Internal Medicine 03/18/18
== END 2024-10-06 07:49 | disposition home or self-care (01) ==
DX: R10.11 Right upper quadrant pain (principal)
CPT/HCPCS: 78227; A9537; J2805

== ENCOUNTER 2024-10-13 14:26 | Outpatient (RCR) | payer BC, SELFPAY ==
[2024-10-13 15:27] VITALS: BMI 31.5
== END 2025-01-11 12:05 | disposition home or self-care (01) ==
LOC: ANHDMC 14:26
PROVIDERS: PCP Internal Medicine; Visit Provider Internal Medicine
DX: E78.2 Mixed hyperlipidemia (principal); Z71.3 Dietary counseling and surveillance
CPT/HCPCS: 97803

== ENCOUNTER 2025-02-23 07:15 | Outpatient (CLI) | payer BC, SELFPAY ==
--- NOTE | ~2025-02-23 | MM_ITS ---
EXAMINATION: MM screening mac BI w monroe HISTORY: Screening TECHNIQUE: Craniocaudal and mediolateral oblique 3-D tomosynthesis images were obtained and synthetic 2-D images were generated. CAD analysis was submitted and interpreted. COMPARISON: Comparison to multiple prior studies sequentially, with oldest reviewed study dated 12/05/2021. BREAST PARENCHYMAL COMPOSITION: Not dense: There are scattered areas of fibroglandular density. FINDINGS: There are multiple developing nodular asymmetries of the left breast centered in the anterior/lateral aspect of the breast, anterior third. There are additional scattered developing nodular asymmetries of the right breast. IMPRESSION: 1. Developing bilateral breast asymmetries. 2. Additional mammographic views and possible breast ultrasound are recommended. BI-RADS Category 0: Incomplete: Needs additional imaging evaluation. Reviewed, dictated and finalized at location O. IMPRESSION: 1. Developing bilateral breast asymmetries. 2. Additional mammographic views and possible breast ultrasound are recommended . BI-RADS Category 0: Incomplete: Needs additional imaging evaluation.
--- OUTSIDE RECORDS SUMMARY | 2025-02-23 07:19 | XMS_ITS | Clinical Summary ---
Author Organization [facility] Address [address] [place] [id number] Care Team Providers Care Cruise Director Name Role Phone Chalo Hernandez MD Primary Care Provider Allergies No known active allergies Medications levonorgestrel-e thinyl estradiol (VIENVA) 0.1-20 MG-MCG tablet Take 1 tablet by mouth daily. Active Ivermectin (SOOLANTRA) 1 % Cream Active Immunizations Immunization Administration Dates Next Due Tdap (Boostrix) 10/11/2018 Social History Tobacco Use Types Packs/Day Years Used Date Smoking Tobacco: Former Cigarettes Q uit: 2003 Smokeless Tobacco: Former Alcohol Use Standard Drinks/Week Comments No 0 (1 standard drink = 0.6 oz pur e alcohol) AUDIT-C Answer Date Recorded Frequency of Alcohol Consumption Never 10/11/2018 Average Number of Drinks Not on file 019 Frequency of Binge Drinking Not on file 12/2018 Comments Unknown Sex and Gender Information Value Date Recorded Sex Assigned at Not on file 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 Gender Identity Not on file Sexual Orientation Not on file Last Filed Vital Signs Vital Sign Reading Time Taken Comments Blood Pressure 166/98 10/11/2018 5:32 PM CDT Pulse 84 10/11/2018 5:32 PM CDT Temperature 36.1 C (97 F) 10/11/2018 5:32 PM CDT Respiratory Rate 18 10/11/2018 5:32 PM CDT Oxygen Saturation 100% 10/11/2018 5:32 PM CDT Inhaled Oxygen Concentration - - Weight 90.7 kg (200 lb) 10/11/2018 5:32 PM CDT Height 167.6 cm (5' 6) 10/11/2018 5:32 PM CDT Body Mass Index 32.28 10/11/2018 5:32 PM CDT Plan of Treatment Health Maintenance Due Date Last Done Comments Cervical Cancer Screening Pa p Smear (Age 30 to 64) Every 3 Years 1980 Annual Physical 12/03/1983 Hepatitis C 1998 Hepatitis B Vaccines (1 of 3 - 19+ 3-dose series) 12/03/1999 HPV Vaccines (1 - 3-dose SCD M series) 12/03/2007 Cervical Cancer Screening Pa p with HPV Testing (Age 30 to 64) Every 5 Years 2010 Cervical Cancer Screening with HPV 2010 Mammogram Screening 2020 COVID-19 Vaccine ( - 2023-2 5 season) 2025 Influenza Adult (#1) 2025 DTaP, Tdap and Td Vaccines ( 2 - Td or Tdap) 10/11/2028 10/11/2018 Meningococcal B Vaccine Aged Out No l onger eligible based on patient's age to complete this topic Meningococcal Vaccine Aged Out No nichole jose f eligible based on patient's age to complete this topic Pneumococcal Vaccine: Pediat rics (0 to 5 Years) and At-Risk Patients (6 to 49 Years) Aged Out No longer eligi ble based on patient's age to complete this topic RSV Immunizations Under 20 Months Aged Out No longer eligible based on patient's age to complete this topic Insurance Care Teams Cruise Director Relationship Specialty Start Date End Date Chalo Hernandez MD [address] [place] [address] PCP - General INTERNAL MEDICINE 10/11/18
--- OUTSIDE RECORDS SUMMARY | 2025-02-23 07:19 | XMS_ITS | Clinical Summary ---
Author Organization [facility] Address [address] [place] [address] Care Team Providers Care Artificial Stone Applicator Name Role Phone Chalo Hernandez MD Primary Care Provider [phone] Allergies No known active allergies Medications verapamil [...] Encounters Date Type Department Care Team Description 11/26/2024 Orders Only [facility] [address] [facility] 12[address] [place] [address] [place] [address] Joann Menjivar LPN from Last 3 Months Immunizations Immunization Administration [...] Date Smoking Tobacco: Former Cigarettes Q uit: 2013 Smokeless Tobacco: Never Tobacco Cessation:Counseling Given: Not [...] on file 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 Gender Identity Not on file Sexual Orientation [...] series) 1993 Regular Well Visit/Exam 18-64 1998 HPV Vaccines (1 - 3-dose SCDM series) 12/03/2007 Covid-19 Vaccine ( season) 2025 08/05/2020, 07/08/2020 Influenza Vaccine (#1) 2025 02/20/2018, 2015 DTaP/Tdap/Td Vaccine (5 - Td or Tdap) 10/11/2028 10/11/2018, 11/09/1994, 12/29/1985, Additional history exists Hepatitis B Screening Completed 09/09/2023 Hepatitis C Screening Completed 09/09/2023 Pneumococcal vaccine <65 Aged Out No longer eligible based on patient's age to complete this topic Procedures Procedure Name Priority Date/Time Associated Diagnosis Comments HEPATITIS C ANTIBODY Routine 09/09/2023 11:29 AM CDT Elevated liver function tests from Last 3 Months or Most Recently Relevant to Health Maintenance Results * Hepatitis C antibody Blood (09/09/2023 11:29 [...] last revised on 2019. Testing performed by: [facility], [facility] [facility], [place]., [address] Blood 09/09/2023 11:2 9 AM CDT 09/09/2023 12:39 PM CDT Lexie Samuels NP LAB MICROBIOLOGY - GENERAL ORDERABLES Edited Result - Final [facility] [id number] [facility]. Department [place] [address] from Last 3 Months or Most Recently Relevant to Health Maintenance Insurance [facility] [employer] [facility] [employer] Care Teams Artificial Stone Applicator Relationship Specialty Start Date End Date Chalo Hernandez MD PCP - General Internal Medicine 03/18/18
== END 2025-02-23 07:16 | disposition home or self-care (01) ==
PROVIDERS: PCP Internal Medicine; Visit Provider Nurse Practitioner Family
DX: Z12.31 Encounter for screening mammogram for malignant neoplasm of breast (principal); R92.8 Other abnormal and inconclusive findings on diagnostic imaging of breast
CPT/HCPCS: 77063; 77067

== ENCOUNTER 2025-04-21 07:46 | Outpatient (CLI) | payer BC, SELFPAY ==
--- NOTE | ~2025-04-21 | MM_ITS ---
EXAMINATION: MM diagnostic mac BI w monroe INDICATION: 44-year old female; BI-RADS 0, callback to evaluate Both breasts focal asymmetries COMPARISON: 02/23/2025 through 04/15/2019 TECHNIQUE: Digital breast tomosynthesis True lateral view and spot compression pain CC and MLO views of Both breasts were obtained. FINDINGS: There are scattered areas of fibroglandular density. The asymmetries seen in the Both breasts on the screening mammogram effaces on additional views, compatible with normal overlapping tissue.. IMPRESSION: Both breasts finding represents superimposition of fibroglandular tissue. No further investigation necessary. RECOMMENDATION: Annual screening mammography in 12 months BI-RADS 2, BENIGN Reviewed, dictated and finalized at location C. CAL ASSISTING PROGRAM DIRECTOR IMPRESSION: Both breasts finding represents superimposition of fibroglandular tissue. No fu rther investigation necessary. RECOMMENDATION: Annual screening mammography in 12 months BI-RADS 2, BENIGN
== END 2025-04-21 07:47 | disposition home or self-care (01) ==
LOC: MICIMG 07:48
PROVIDERS: PCP Internal Medicine; Visit Provider Nurse Practitioner Obstetrics & Gynecology
DX: R92.8 Other abnormal and inconclusive findings on diagnostic imaging of breast (principal)
CPT/HCPCS: 77062; 77066; G0279